=== PATIENT | male | born 1995 | race Caucasian/White ===

== ENCOUNTER → 2022-04-14 | Outpatient (CLI) | payer BC, SELFPAY ==
--- NOTE | 2022-04-14 07:53 | RAD_ITS ---
STUDY: X-RAY - ESOPHAGUS (BARIUM SWALLOW) WITH FLUOROSCOPY REASON FOR EXAM: Male, 26 years old. DYSPHAGIA TECHNIQUE: 12 view(s) of the esophagus were obtained following swallowing of barium. FLUOROSCOPY TIME (if supplied): (46 seconds) minutes/seconds COMPARISON: None. FINDINGS: There is no demonstrated esophageal foreign body. There is no demonstrated stricture or mucosal abnormality. Normal gastroesophageal junction, without a demonstrated hiatal hernia. The patient ingested a 12 mm tablet of barium without any difficulty. Normal visualized aortic arch and descending thoracic aorta. Normal visualized pulmonary parenchyma. Normal visualized osseous structures of the thorax. RAD/Esophagus Dual Contrast IMPRESSION: Normal plain film x-ray examination (barium swallow) of the esophagus. Electronically Signed: James Hernadez MD at 13:54 EDT ,
== END | disposition home or self-care (01) ==
LOC: RAD 07:52
PROVIDERS: Referring Provider Otolaryngology Otolaryngology/Facial Plastic Surgery; Visit Provider Otolaryngology Otolaryngology/Facial Plastic Surgery
DX: R13.10 Dysphagia, unspecified (principal)
CPT/HCPCS: 74221

== ENCOUNTER 2022-09-10 08:42 | Day surgery (SDC) | payer BC, SELFPAY ==
[2022-09-10] VITALS (7 sets, daily range): BP systolic 97–118; BP diastolic 55–75; PULSE 69–101; RESP 16; TEMP 36.2–36.8; O2SAT 94–99; BMI 17.0
[2022-09-10] MEDS: Lactated Ringers 1,000 ML 15 ML IV (09:11)
--- NOTE | 2022-09-10 09:43 | HP.PCM_ITS ---
History and Physical Date of Admission: 09/10/22 26 M who presents to the office today to establish with GI for difficulty swallowing. Referred by ENT Dr Robledo. Normal esophagram in 03/2022. Started about 2 yrs ago, has gotten worse to the point of having difficulty swallowing soup recently. On 2-3 occasions he had to retch up food that got stuck in mid esophagus. Painful when that occurs but otherwise not complaining of pain or spasms. No relief with omeprazole. Doesn't have heartburn or acid reflux. No nausea or vomiting. He does burp frequently. No abd pain. No diarrhea or constipation. No melena or hematochezia. Has always had difficulty gaining weight but worse recently because of dysphagia. Appetite is ok but reluctant to eat because of dysphagia. He has seasonal allergies. Has asthma, not problematic in adulthood. ROS Const Constitutional: No fatigue ENT ENT: Positive for difficulty swallowing Gastro GI: Positive for difficulty swallowing; No abdominal pain, belching, bloating, change in bowel habits, change in stool character, coffee ground emesis, constipation, cramping, diarrhea, heartburn, feeling full early, excessive flatus, incontinent of stools, Vomiting blood/hematemesis, Blood in stool, loose stools, Black,tarry stools, nausea/dyspepsia, pain with swallowing, vomiting or other Musc Musculoskeletal: No joint pain Skin Skin: No yellowing of the eye or itchy eyes Psych Psychiatric: No anxiety and No depression Endo Endocrine: No fatigue Aller/Imm Allergy/Immunologic: No itchy eyes Fredis/Lymp Hematologic/Lymphatic: No easy bleeding or easy bruising Exam Const General: cooperative, healthy appearing and comfortable Nutritional Appearance: thin Orientation: alert, awake and oriented x3 HENMT Head: normal to inspection Eyes Sclera: sclerae normal Neck Neck: normal visual inspection Chest Chest palpation & inspection: normal inspection of the chest Resp Effort & Inspection: normal respiratory effort GI Inspection: normal to inspection Quality Reporting Tobacco Screening ([facility] 138) Smoking Status: Never smoker Assessment and Plan Assessment and Plan (1) Dysphagia: ?Status:?Chronic ?Plan: 26 yo male with dysphagia, hx allergies and asthma. No heartburn/acid reflux. Will get EGD to eval for EOE, GERD. F/u in office to discuss bx results. If EOE would likely treat with Dupixent. I have examined the patient and the H&P has been reviewed. There are no clinical changes since date of exam.
--- NOTE | 2022-09-10 10:00 | EGD_PTH ---
PATIENT: NICOLAS STARKEY LOC: EN U#:[id number] AGE/SX: 26/M ROOM: RE09/10/[address]: Dr. Juan Quijano DO : 1995 BED: DIS: 09/10/2022 SPEC #: [id number] RECD: 09/10/22 13:32 STATUS: MELVINA RESabrina #: [id number] LITZY: 09/10/22 10:[address]: Juan Quijano DEPT: SURGICAL PATHOLOGY RECD BY: Roseline Hodges ENTERED: 09/11/22 09:52 SP TYPE: EGD BIOPSY OT DR: No Primary Care Phys Tissues: Esophagus, NOS Procedures: Surgery Specimen Level IV HEADER OPERATION: [place] [place] and biopsy and dilatation PRE-OP DIAGNOSIS: Dysphagia TISSUE SUBMITTED: Random esophagus biopsy MICROSCOPIC DIAGNOSIS Esophagus, random biopsy: Consistent with eosinophilic esophagitis. AM:lora 09/12/2022 MICROSCOPIC DESCRIPTION Slides are reviewed. GROSS DESCRIPTION Received in fixative is one container labeled with the patient's name and designated random esophagus biopsy. The specimen consists of multiple irregular fragments of light silveira soft tissue that in aggregate measure 0.9 x 0.5 x 0.1 cm. The specimen is totally submitted in one cassette. / SJ:rg 09/11/2022 TC:3 CPT: 22666 ADDENDUM ADDENDUM 09/24/2022 11:42 ADDENDUM 09/24/2022 11:42 ADDENDUM 09/24/2022 11:42 ADDENDUM 09/24/2022 11:42 ADDENDUM 09/24/2022 11:42 Eosinophils average 30 per high power field.
--- NOTE | 2022-09-10 10:48 | OP.EGD_ITS ---
Patient Name: Feliciano Tucker Procedure Date: 09/10/2022 10:14 AM Date of : 1995 Age: 26 Procedure: Upper GI endoscopy Indications: Dysphagia Providers: Juan Quijano DO Medicines: Monitored Anesthesia Care Patient Profile: This is a 26 year old male. Refer to note in patient chart for documentation of history and physical. Patient has symptoms of dysphagia with both liquids and solids. Complications: No immediate complications. Procedure: Pre-Anesthesia Assessment: - Prior to the procedure, a History and Physical was performed, and patient medications and allergies were reviewed. The patient is competent. The risks and benefits of the procedure and the sedation options and risks were discussed with the patient. All questions were answered and informed consent was obtained. Patient identification and proposed procedure were verified by the physician in the pre-procedure area. Mental Status Examination: alert and oriented. Airway Examination: normal oropharyngeal airway and neck mobility. Respiratory Examination: clear to auscultation. CV Examination: normal. Prophylactic Antibiotics: The patient does not require prophylactic antibiotics. Prior Anticoagulants: The patient has taken no previous anticoagulant or antiplatelet agents. ASA Grade Assessment: I - A normal, healthy patient. After reviewing the risks and benefits, the patient was deemed in satisfactory condition to undergo the procedure. The anesthesia plan was to use monitored anesthesia care (MAC). Immediately prior to administration of medications, the patient was re-assessed for adequacy to receive sedatives. The heart rate, respiratory rate, oxygen saturations, blood pressure, adequacy of pulmonary ventilation, and response to care were monitored throughout the procedure. The physical status of the patient was re-assessed after the procedure. After obtaining informed consent, the endoscope was passed under direct vision. Throughout the procedure, the patient's blood pressure, pulse, and oxygen saturations were monitored continuously. The Endoscope was introduced through the mouth, and advanced to the second part of duodenum. The upper GI endoscopy was accomplished without difficulty. The patient tolerated the procedure well. Scope In: 10:30:28 AM Scope Out: 10:37:00 AM Total Procedure Duration Time 0 hours 6 minutes 32 seconds Findings: Mucosal changes including small-caliber esophagus, white plaques and stenosis were found in the upper third of the esophagus and in the middle third of the esophagus. Esophageal findings were graded using the Eosinophilic Esophagitis Endoscopic Reference Score (EoE-EREFS) as: Edema Grade 1 Present (decreased clarity or absence of vascular markings), Rings Grade 1 Mild (subtle circumferential ridges seen on esophageal distension), Furrows Grade 1 Present (vertical lines with or without visible depth) and Stricture present. Biopsies were obtained from the proximal and distal esophagus with cold forceps for histology of suspected eosinophilic esophagitis. Verification of patient identification for the specimen was done. Estimated blood loss was minimal. One benign-appearing, intrinsic stenosis was found 20 to 22 cm from the incisors. This stenosis was moderately severe (circumferential scarring or stenosis; an endoscope may pass) and. The stenosis was traversed. A guidewire was placed and the scope was withdrawn. Dilation was performed with a Savary dilator with no resistance at 51 Fr. The dilation site was examined and showed moderate improvement in luminal narrowing. Estimated blood loss was minimal. Patchy, white plaques were found in the upper third of the esophagus and in the middle third of the esophagus. Biopsies were taken with a cold forceps for histology. Verification of patient identification for the specimen was done. Estimated blood loss was minimal. The entire examined stomach was normal. The first portion of the duodenum was normal. Impression: - Esophageal mucosal changes consistent with eosinophilic esophagitis. Biopsied. - Benign-appearing esophageal stenosis. Dilated. - Esophageal plaques were found, consistent with candidiasis. Biopsied. - Normal stomach. - Normal first portion of the duodenum. Recommendation: - Discharge patient to home. - Resume previous diet. - Use Protonix (pantoprazole) 40 mg PO BID for 8 weeks. - Nystatin suspension 100,000 units PO QID for 1 week. - Continue present medications. Procedure Code(s): --- Professional --- 43860, Esophagogastroduodenoscopy, flexible, transoral; with insertion of guide wire followed by passage of dilator(s) through esophagus over guide wire 64067, 59, Esophagogastroduodenoscopy, flexible, transoral; with biopsy, single or multiple CPT copyright 2017 [employer]. All rights reserved. The codes documented in this report are preliminary and upon cafeteria cook review may be revised to meet current compliance requirements. Juan Quijano DO 09/10/2022 10:47:52 AM This report has been signed electronically. Number of Addenda: 0 Note Initiated On: 09/10/2022 10:14 AM
--- NOTE | 2022-09-10 10:48 | OP.CCLET_ITS ---
09/10/2022 No Primary Care Physician Re : Upper GI endoscopy procedure for Feliciano Tucker Dear Care Physician This procedure was performed on Saturday, September 10, 2022. My impressions and recommendations are as follows: Impressions : - Esophageal mucosal changes consistent with eosinophilic esophagitis. Biopsied. - Benign-appearing esophageal stenosis. Dilated. - Esophageal plaques were found, consistent with candidiasis. Biopsied. - Normal stomach. - Normal first portion of the duodenum. Recommendations : - Discharge patient to home. - Resume previous diet. - Use Protonix (pantoprazole) 40 mg PO BID for 8 weeks. - Nystatin suspension 100,000 units PO QID for 1 week. - Continue present medications. My findings are described in the full procedure note, which is enclosed. If I can be of further assistance, please feel free to contact me at . Sincerely, Juan Quijano, 09/10/2022 10:47:52 AM This report has been signed electronically.
== END 2022-09-10 11:41 | disposition home or self-care (01) ==
LOC: EN 08:44 → AC 08:46
PROVIDERS: Visit Provider Internal Medicine Gastroenterology
PROC: 0DJ08ZZ Inspection of Upper Intestinal Tract, Via Natural or Artificial Opening Endoscopic (ICD-10-PCS; CPT 43235; principal; 2022-09-10 09:55)
DX: K22.2 Esophageal obstruction (principal)
CPT/HCPCS: 43239; 43248; 88305; J7120; C1769; J2405

== ENCOUNTER 2023-05-07 14:51 | Outpatient (CLI) | payer BC, SELFPAY ==
[2023-05-12 18:07] LABS: Beef <0.10 kU/L (Class 0); Chocolate <0.10 kU/L (Class 0); Codfish <0.10 kU/L (Class 0); Corn 0.16 kU/L (Class 0/I); Egg, Whole <0.10 kU/L (Class 0); Milk (Cow) <0.10 kU/L (Class 0); Mussels <0.10 kU/L (Class 0); Peanut 0.63 kU/L (Class II); Pork <0.10 kU/L (Class 0); Salmon <0.10 kU/L (Class 0); Shrimp <0.10 kU/L (Class 0); Soybean 0.49 kU/L (Class I); Tuna <0.10 kU/L (Class 0); Wheat 0.24 kU/L (Class 0/I)
== END 2023-05-07 23:59 | disposition home or self-care (01) ==
LOC: LAB 14:53
PROVIDERS: Visit Provider Internal Medicine Gastroenterology
DX: K20.0 Eosinophilic esophagitis (principal)
CPT/HCPCS: 36415; 86003; 86005